=== PATIENT | female | born 1970 | race Caucasian/White ===

== ENCOUNTER → 2017-10-22 | Outpatient (REF) | LOC: M SMT 13:10 | DX: M54.5 Low back pain (principal) ==

== ENCOUNTER → 2022-02-01 | Outpatient (CLI) | payer OTHER ==
[~2022-02-01] MED LIST: CYAN1000VL IM; ISOVUE-370 76% 100ML VIAL As Ordered ONE; OMEP40CA5 PO; SUCR1TAB56 PO; [UNRECOGNIZED DRUG - OTHER] SC
== END ==
LOC: M RAD 09:51
PROVIDERS: ATTEND Internal Medicine Medical Oncology
DX: R91.8 Other nonspecific abnormal finding of lung field (principal); J98.11 Atelectasis
CPT/HCPCS: 71260; Q9967